=== PATIENT | male | born 1965 | race Two or more races ===

== ENCOUNTER 2021-04-16 12:23 | Emergency (ER) | payer OTHER ==
[~2021-04-16] VITALS: Ht 167.6 cm; Wt 81.6 kg
[2021-04-16] MEDS ORDERED: FORTAMET1000 MG (12:39)
== END 2021-04-16 21:53 | disposition home or self-care (01) ==
LOC: ER 12:23
DX: M25.551 Pain in right hip (principal)
CPT/HCPCS: 73720

== ENCOUNTER 2021-04-17 06:43 | Emergency (ER) | payer OTHER ==
[~2021-04-17] VITALS: Ht 167.6 cm; Wt 81.6 kg
[~2021-04-17 06:43] MED LIST: FORTAMET1000 MG
== END 2021-04-17 12:35 | disposition home or self-care (01) ==
LOC: ER 06:43
DX: S80.11XA Contusion of right lower leg, initial encounter (principal); W18.39XA Other fall on same level, initial encounter; Y93.89 Activity, other specified; Y92.098 Other place in other non-institutional residence as the place of occurrence of the external cause; Y99.8 Other external cause status

== ENCOUNTER 2021-07-25 08:05 | Outpatient (CLI) | payer OTHER | END 2021-07-25 17:02 | disposition home or self-care (01) | LOC: PPH VACUNA 08:05 | PROVIDERS: ATTEND Emergency Medicine Pediatric Emergency Medicine | DX: Z23 Encounter for immunization (principal) ==

== ENCOUNTER → 2022-03-23 | Outpatient (CLI) | payer OTHER | END | disposition home or self-care (01) | LOC: PPH VACUNA 08:00 | PROVIDERS: ATTEND Emergency Medicine Pediatric Emergency Medicine | DX: Z23 Encounter for immunization (principal) ==

== ENCOUNTER 2024-06-02 10:25 | Outpatient (CLI) | payer OTHER | END 2024-06-02 10:33 | disposition home or self-care (01) | LOC: SONOGRAMA 10:25 | PROVIDERS: ATTEND Pathology Anatomic Pathology & Clinical Pathology | DX: D44.0 Neoplasm of uncertain behavior of thyroid gland (principal); E04.1 Nontoxic single thyroid nodule ==

== ENCOUNTER 2024-11-13 14:27 | Outpatient (CLI) | payer OTHER | END 2024-11-13 14:30 | disposition home or self-care (01) | LOC: SONOGRAMA 14:27 | PROVIDERS: ATTEND Pathology Anatomic Pathology & Clinical Pathology | DX: D44.0 Neoplasm of uncertain behavior of thyroid gland (principal); E04.1 Nontoxic single thyroid nodule ==